=== PATIENT | female | born 2000 | race Caucasian/White ===

== ENCOUNTER 2019-12-01 04:01 | Emergency (ER) | payer SELFPAY ==
[~2019-12-01] VITALS: Ht 162.6 cm; Wt 65.9 kg
[2019-12-01 04:09] VITALS: BP 156/91
[2019-12-01] MEDS ORDERED: AMOX500C PO (04:53)
--- NOTE | 2019-12-01 04:55 | PHYS DOC ---
Past Medical History Past Medical History: No Pertinent History Past Surgical History: Other Additional Past Surgical Histo: LT ARM FRX Smoking Status: Current Every Day Smoker Alcohol Use: None Adult General Chief Complaint Chief Complaint: SKIN RASH/ABSCESS HPI HPI 19-year-old female presents emerged department complaints of left side facial pain, swelling, rash patient denies any fever. States is been ongoing x1 week worse tonight. Nothing makes her symptoms worse, nothing makes her symptoms better. Denies any headache, visual change, chest pain, shortness of breath, nausea, vomiting. Review of Systems Review of Systems Constitutional: Denies fever or chills [] HENT: Denies nasal congestion or sore throat [] Respiratory: Denies cough or shortness of breath [] Cardiovascular: No additional information not addressed in HPI [] GI: Denies abdominal pain, nausea, vomiting, bloody stools or diarrhea [] Integument: Denies rash or skin lesions [] Neurologic: Denies headache, focal weakness or sensory changes [] All other systems were reviewed and found to be within normal limits, except as documented in this note. Allergies Allergies Allergies Coded Allergies Type Severity Reaction Last Updated Verified No Known Drug Allergies 12/01/19 No Physical Exam Physical Exam Constitutional: Well developed, well nourished, no acute distress, non-toxic appearance. [] HENT: Normocephalic, atraumatic, bilateral external ears normal, oropharynx moist, no oral exudates, nose normal, swelling appreciated to left face [] Eyes: PERRLA, EOMI, conjunctiva normal, no discharge. [] Neck: Normal range of motion, no tenderness, supple, no stridor. [] Cardiovascular:Heart rate regular rhythm, no murmur [] Lungs & Thorax: Bilateral breath sounds clear to auscultation [] Skin: Warm, dry, mild erythema appreciated to left cheek Neurologic: Alert and oriented X 3, no focal deficits noted. [] Psychologic: Affect normal, judgement normal, mood normal. [] Current Patient Data Vital Signs Vital Signs Date Time Temp Pulse Resp B/P (MAP) Pulse Ox O2 Delivery O2 Flow Rate FiO2 12/01/19 04:09 98.6 89 18 156/91 (112) 100 Room Air 98.6 EKG EKG [] Radiology/Procedures Radiology/Procedures [] Course & Med Decision Making Course & Med Decision Making Pertinent Labs and Imaging studies reviewed. (See chart for details) []19-year-old female presents emerged department complaints of left side facial pain, swelling, rash patient denies any fever. States is been ongoing x1 week worse tonight. Nothing makes her symptoms worse, nothing makes her symptoms better. Denies any headache, visual change, chest pain, shortness of breath, nausea, vomiting. Dragon Disclaimer Dragon Disclaimer This electronic medical record was generated, in whole or in part, using a voice recognition dictation system. Departure Departure Impression: Primary Impression: Jaw pain Additional Impression: Rash Disposition: HOME, SELF-CARE Condition: STABLE Referrals: NO PCP (PCP) Patient Instructions: Facial Infection Additional Instructions: Amoxicillin rx provided upon discharge Recommend use of benadryl as needed for rash Recommend aquaphor as needed to help barrier Tylenol and motrin as needed Scripts Amoxicillin (AMOXICILLIN) 500 Mg Capsule 1 CAP PO Q8HRS for infection, #30 CAP Prov: LONDON VASQUEZ MD 12/01/19 Problem Qualifiers LONDON VASQUEZ MD Dec 01, 2019 04:55
== END 2019-12-01 04:59 | disposition home or self-care (01) ==
LOC: ER 04:01
DX: R68.84 Jaw pain (principal); R21 Rash and other nonspecific skin eruption; R60.0 Localized edema; R51 Headache; F17.200 Nicotine dependence, unspecified, uncomplicated; Z98.890 Other specified postprocedural states
CPT/HCPCS: 99283